=== PATIENT | male | born 1990 | race Two or more races ===

== ENCOUNTER 2021-04-22 11:41 | Emergency (ER) | payer MEDICAID ==
[~2021-04-22] VITALS: Ht 180.3 cm; Wt 83.9 kg
[2021-04-22 11:45] VITALS: BP_SYST 129
--- NOTE | 2021-04-22 11:50 | NUR ---
Patient to ER bed 6 to gown for evaluation. Side rails up. Report given to OLIVERIO BOSE.
--- NOTE | 2021-04-22 12:15 | NUR ---
RECEIVED AND IN ROOM, C/O SOB AND RECENT MED CHANGE, PT STATED HE DRANK INCREASED AMOUNTS OFF COFFEE THIS AM. ALERT, ANXIOUS, NO DISTRESS
--- NOTE | 2021-04-22 12:30 | NUR ---
DR STEVENSON IN TO ASSESS
[2021-04-22 13:47] VITALS: BP_SYST 131
--- NOTE | 2021-04-22 13:47 | NUR ---
Patient given written and verbal discharge instructions and verbalizes understanding. ER MD discussed with patient the results and treatment provided. Patient in stable condition. ID arm band removed. Patient educated on pain management and to follow up with PMD. Pain Scale 0/10 Opportunity for questions provided and answered. Medication side effect fact sheet provided.
== END 2021-04-22 13:47 | disposition home or self-care (01) ==
LOC: SED 11:41
DX: R06.02 Shortness of breath (principal); R07.89 Other chest pain; F41.9 Anxiety disorder, unspecified; F25.9 Schizoaffective disorder, unspecified
CPT/HCPCS: 71045; 93005; 99283